=== PATIENT | male | born 1995 | race Caucasian/White ===

== ENCOUNTER 2021-10-30 11:37 | Emergency (ER) | payer MEDICAID ==
[~2021-10-30] VITALS: Ht 172.7 cm; Wt 74.8 kg
[2021-10-30] MEDS ORDERED: LORazepam 2MG/ML-1ML VIAL IV ONE (11:45)
[2021-10-30] MEDS ORDERED: SODIUM CHLORIDE 0.9% 1,000 ML IVB ONE (11:45)
[2021-10-30 12:35] VITALS: BP 116/69
== END 2021-10-30 12:50 | disposition left against medical advice (07) ==
LOC: EDBD 11:37 → ER 11:37
DX: R56.9 Unspecified convulsions (principal)
CPT/HCPCS: 99283; J1953; J7060

== ENCOUNTER 2021-10-31 17:03 | Emergency (ER) | payer MEDICAID ==
[~2021-10-31] VITALS: Ht 182.9 cm; Wt 63.5 kg
[2021-10-31 19:19] VITALS: BP 115/77
== END 2021-10-31 19:26 | disposition home or self-care (01) ==
LOC: ER 17:03
DX: G40.909 Epilepsy, unspecified, not intractable, without status epilepticus (principal); J45.909 Unspecified asthma, uncomplicated; F12.10 Cannabis abuse, uncomplicated

== ENCOUNTER 2022-07-02 07:10 | Emergency (ER) | payer MEDICAID ==
[~2022-07-02] VITALS: Ht 175.3 cm; Wt 55.0 kg
[2022-07-02] MEDS ORDERED: TETRACAINE HCL 0.5% OPTH(EYE) SOLN 4ML EACHEYE ONE (08:30)
[2022-07-02] MEDS ORDERED: FLUORESCEIN SOD OPTH TEST STRIP EACHEYE ONE (08:30)
[2022-07-02 09:21] VITALS: BP 106/56
[2022-07-02] MEDS ORDERED: POLYSOL15 OP (09:31)
== END 2022-07-02 09:43 | disposition home or self-care (01) ==
LOC: ER 07:10
DX: S05.01XA Injury of conjunctiva and corneal abrasion without foreign body, right eye, initial encounter (principal); T15.01XA Foreign body in cornea, right eye, initial encounter; J45.909 Unspecified asthma, uncomplicated; Z79.899 Other long term (current) drug therapy; X58.XXXA Exposure to other specified factors, initial encounter; Y93.89 Activity, other specified; Y92.89 Other specified places as the place of occurrence of the external cause; Y99.8 Other external cause status

== ENCOUNTER 2022-11-03 16:57 | Emergency (ER) | payer MEDICAID ==
[~2022-11-03] VITALS: Ht 175.3 cm; Wt 65.5 kg
[~2022-11-03 16:57] MED LIST: POLYSOL15 OP
[2022-11-03 17:18] VITALS: BP 121/72
== END 2022-11-03 23:00 | disposition left against medical advice (07) ==
LOC: ER 16:59
DX: M79.641 Pain in right hand (principal); Z53.21 Procedure and treatment not carried out due to patient leaving prior to being seen by health care provider; W26.8XXA Contact with other sharp object(s), not elsewhere classified, initial encounter; Y93.89 Activity, other specified; Y92.89 Other specified places as the place of occurrence of the external cause; Y99.8 Other external cause status
CPT/HCPCS: 73130

== ENCOUNTER 2025-05-24 12:24 | Inpatient (IN) | payer MEDICAID ==
[~2025-05-24] VITALS: Ht 167.6 cm; Wt 72.5 kg
[~2025-05-24 12:24] MED LIST changes: -POLYSOL15 OP; +POLYSOL28 OP
--- NOTE | 2025-05-24 13:40 | ED.PDOC ---
GI ASSESSMENT HPI Comments 30-year-old male with PMHX Seizures presents with a chief complaint of abdomen pain with associated nausea, vomiting, and diarrhea. Patient states that his abdomen pain is localized to the right upper quadrant and right flank, nonradiating, describes as aching. Patient states he is unable to keep liquids or solids down without vomiting it back up. Patient states he has not been able to take his seizure medications due to the nausea and vomiting. He also reports he has had several seizures since the symptoms began. Patient is a poor historian and does not know which seizure medication he takes, but states that he believes it is the medication or the heat outside that could be causing his symptoms. He denies any fever, constipation or dysuria. No other symptoms or modifying factors present at this time. Chief Complaint: Nausea/Vomiting Time Seen by MD: 13:29 Primary Care Provider: SAMSON WEBB Reviewed Notes: Medications, Allergies Allergies: Coded Allergies: NO KNOWN ALLERGIES (Unverified , 10/30/21) Home Meds Active Scripts Polymyxin B-Trimethoprim (Trimethoprim Sulfate/Poly) Polymyxn Judy, 1 DROP OP TID for 7 Days, #1 BOTTLE 0 Refills Prov:LISA LOWE 07/02/22 Information Source: Patient Mode of Arrival: Ambulatory Timing: Days Duration: Since onset Prehospital treatment: None Quality: Aching Vomitus: Food Particles Stool: Watery Severity: Moderate Recent: None Recent Hx of: None Pain Location: Diffuse Associated sign and symptoms: Nausea, Vomiting, Diarrhea, Abdominal Pain Past Medical History PAST MEDICAL HISTORY: Asthma, Seizures Surgical History: Denies all surgeries Family History Family History: Reviewed,noncontributory to illness Social History Smoker: Other Alcohol: Occasionally Drugs: Marijuana Lives In: Home Constitutional: reports: fever; denies: chills, diaphoresis, fatigue, malaise, sweats, weakness, others EENTM: denies: blurred vision, double vision, ear bleeding, ear discharge, ear drainage, ear pain, ear ringing, eye pain, eye redness, hearing loss, mouth pain, mouth swelling, nasal discharge, nose bleeding, nose congestion, nose pain, photophobia, tearing, throat pain, throat swelling, voice changes, others Respiratory: denies: cough, hemoptysis, orthopnea, SOB at rest, shortness of breath, SOB with excertion, stridor, wheezing, others Gastrointestinal: reports: abdominal pain, diarrhea, nausea, vomiting; denies: abdomen distended, blood streaked bowels, constipated, dysphagia, difficulty swallowing, hematemesis, melena, poor appetite, poor fluid intake, rectal bleeding, rectal pain, others Genitourinary: denies: burning, dysuria, flank pain, frequency, hematuria, incontinence, penile discharge, penile sore, pain, testicle pain, testicle swelling, urgency, others Neurological: denies: dizziness, fainting, headache, left sided numbness, left sided weakness, numbness, paresthesia, pre-existing deficit, right sided numbness, right sided weakness, seizure, speech problems, tingling, tremors, weakness, others Musculoskeletal: denies: back pain, gout, joint pain, joint swelling, muscle pain, muscle stiffness, neck pain, others Integumetry: denies: bruises, change in color, change in hair/nails, dryness, laceration, lesions, lumps, rash, wounds, others Allergic/Immunocompromised: denies: Difficulty Healing, Frequent Infections, Hives, Itching, others Hematologic/Lymphatic: denies: anemia, blood clots, easy bleeding, easy bruising, swollen glands, others Endocrine: denies: excessive hunger, excessive sweating, excessive thirst, excessive urination, flushing, intolerance to cold, intolerance to heat, u nexplained weight gain, unexplained weight loss, others Psychiatric: denies: anxiety, bipolar disorder, depression, hopeless, panic disorder, schizophrenia, sleepless, suicidal, others All Other Systems: Reviewed and Negative Physical Exam General Appearance: Mild Distress HEENT: Other (Pupils and face symmetric. Moist mucous membranes.) Neck: Full Range of Motion, Normal Inspection Respiratory: Lungs Clear, No Accessory Muscle Use, No Respiratory Distress, Normal Breath Sounds Cardiovascular: No Edema, No JVD, Regular Rate/Rhythm Breast Exam: Deferred Gastrointestinal: RUQ, Soft, Tenderness (Right upper flank and right mid back tenderness) Genitalia: Deferred Pelvic: Deferred Rectal: Deferred Extremities: Normal inspection, Normal range of motion, Non-tender, No pedal edema Neurologic: Alert (Oriented x4), Normal Affect, Normal Mood, Other (Ambulatory) Cerebellar Function: NOT DONE Reflexes: NOT DONE Skin: Dry, Normal Color, Warm Lymphatic: NOT DONE Was a procedure done? Was a procedure done?: No GI differential Dx Differential Diagnosis: Cholangitis, Cholecystitis, Diverticular disease, Gastroenteritis, Hepatitis, Inflammatory BD, Urinary Obstruction, UTI, Urolithia sis, Dehydration, Electrolyte Imbalance, Food Poisoning, Bacterial, Viral, Impaction, Stress Ulcer, Kidney Stone X-Ray, Labs, Meds, VS Vital Signs Date Time Temp Pulse Resp B/P (MAP) Pulse Ox O2 Delivery O2 Flow Rate FiO2 05/24/25 17:04 92 17 119/77 05/24/25 16:47 98.8 92 20 119/77 (91) 99 98.8 05/24/25 16:47 92 20 98 Room Air 05/24/25 15:30 98.0 90 20 119/77 (91) 98 98.0 05/24/25 13:00 98.9 86 16 136/79 (98) 97 98.9 Lab Test 05/24/25 14:22 05/24/25 13:33 Range/Units White Blood Count 5.1 4.4-10.8 10^3/uL Red Blood Count 5.44 4.5-5.90 10^6/uL Hemoglobin 17.4 13.5-17.5 g/dL Hematocrit 50.0 41.0-53.0 % Mean Corpuscular Volume 91.9 80.0-100.0 fL Mean Corpuscular Hemoglobin 32.0 28.0-32.0 pg Mean Corpuscular Hemoglobin Concent 34.8 32.0-36.0 g/dL Red Cell Distribution Width 13.6 11.8-14.3 % Platelet Count 99 L 140-450 10^3/uL Mean Platelet Volume 9.1 6.9-10.8 fL Neutrophils (%) (Auto) 64.0 37.0-80.0 % Lymphocytes (%) (Auto) 24.9 10.0-50.0 % Monocytes (%) (Auto) 10.3 0.0-12.0 % Eosinophils (%) (Auto) 0.0 0.0-7.0 % Basophils (%) (Auto) 0.8 0.0-2.0 % Neutrophils # (Auto) 3.3 1.6-8.6 10 ^3/uL Lymphocytes # (Auto) 1.3 0.4-5.4 10 ^3/uL Monocytes # (Auto) 0.5 0-1.3 10 ^3/uL Eosinophils # (Auto) 0 0-0.8 10 ^3/uL Basophils # (Auto) 0 0-0.2 10 ^3/uL Nucleated Red Blood Cells 0.0 % Sodium Level 133 L 136-145 mmol/L Potassium Level 3.8 3.5-5.1 mmol/L Chloride Level 98 98-107 mmol/L Carbon Dioxide Level 27 20-31 mmol/L Anion Gap 8 5-15 Blood Urea Nitrogen 14 9-23 mg/dL Creatinine 1.28 0.700-1.30 mg/dL Glomerular Filtration Rate Calc 77 >90 mL/min BUN/Creatinine Ratio 10.9 10.0-20.0 Serum Glucose 138 H 74-106 mg/dL Calcium Level 9.6 8.7-10.4 mg/dL Total Bilirubin 0.6 0.2-1.0 mg/dL Aspartate Amino Transferase (AST) 146 H 13-40 U/L Alanine Aminotransferase (ALT) 161 H 7-40 U/L Alkaline Phosphatase 77 46-116 U/L Total Protein 6.9 5.7-8.2 g/dL Albumin 4.4 3.2-4.8 g/dL Valproic Acid Level 76.6 50-100 ug/mL Urine Color Yellow Yellow Urine Clarity Clear Clear Urine pH 6.5 5.0-9.0 Urine Specific [place] 1.035 1.001-1.035 Urine Protein 2+ H Negative Urine Ketones 2+ H Negative Urine Blood Trace H Negative /uL Urine Nitrite Negative Negative Urine Bilirubin Negative Negative Urine Urobilinogen 6 Negative mg/dL Urine Leukocyte Esterase Negative Negative /uL Urine RBC 3 0 - 3 /hpf Urine Microscopic WBC 13 H 0-3 /HPF Urine Squamous Epithelial Cells Few <5 /hpf Urine Bacteria None seen None Seen /hpf Urine Mucus Few None Seen Urine Glucose Normal Normal mg/dL Current Medications Medications (Trade) Dose Ordered Sig/Chelo Route Start Time Stop Time Status Last Admin Morphine Sulfate 4 mg ONCE ONCE IV 05/24/25 13:45 05/24/25 13:46 DC 05/24/25 17:04 Ondansetron HCl (Zofran) 4 mg ONCE ONCE IV 05/24/25 13:45 05/24/25 13:46 DC 05/24/25 17:04 Sodium Chloride 2,000 ml @ 1,000 mls/hr Q2H ONCE IV 05/24/25 13:45 05/24/25 15:44 DC 05/24/25 17:05 Divalproex Sodium (Depakote "Dr" Tablet) 750 mg ONCE ONCE PO 05/24/25 16:15 05/24/25 16:16 DC 05/24/25 17:03 Ceftriaxone Sodium 50 ml @ 100 mls/hr ONCE ONCE IV 05/24/25 16:15 05/24/25 16:44 DC 05/24/25 17:04 PROCEDURE(s): ABPL - CT AB PEL WO CON-NO ORAL OR IV REASON: R flank pain, n/v/d fever ORDER NUMBER(s): [id number], ACCESSION NUMBER(s): [id number] CT CT AB PEL WO CON-NO ORAL OR IV INDICATION: R flank pain, n/v/d fever EXAM DATE: 05/24/2025 01:41 PM COMPARISON: None RADIATION DOSE: CTDIvol: 5 mGy, DLP: 290 mGy*cm PROCEDURE: Helical CT images were obtained of the abdomen and pelvis without IV contrast Sagittal and coronal reconstructions are provided. ORAL CONTRAST: None. ADDITIONAL IMAGES / REFORMATS: None All CT scans at this medical facility are performed using dose modulation techniques as appropriate to a performed exam including the following: Automated exposure control was utilized; adjustment of the MA and/or KV according to patient size; and use of iterative reconstruction technique. FINDINGS: LUNG BASE: Normal. LIVER: Normal. GALLBLADDER AND BILIARY TREE: No calcified gallstones. Normal caliber wall. No intra- or extrahepatic biliary ductal dilation. PANCREAS: Normal. SPLEEN: Normal. BOWEL: Normal. Normal appendix. ADRENALS: Normal. KIDNEYS AND URETER: 4 mm nonobstructive right kidney stone. No hydronephrosis. BLADDER: Normal. REPRODUCTIVE ORGANS: Normal. LYMPH NODES:No lymphadenopathy. PERITONEUM: No ascites or free air. No other fluid collection. VESSELS: Normal RETROPERITONEUM: Normal. ABDOMINAL WALL: Normal. BONES: Normal. IMPRESSION: No acute intraabdominal abnormality. Normal appendix. 4 mm nonobstructive right kidney stone. No hydronephrosis. X-Ray, Labs, Meds, VS Comment 30-year-old male with a history of asthma and seizures brought in by family complaining of right upper quadrant, right flank and right-sided back pain, nausea, vomiting and diarrhea, associated with multiple seizures due to the kelvin bility to tolerate his seizure medications. Vitals unremarkable Exam remarkable for right upper quadrant, right upper flank and right sided back tenderness to palpation Rhythm strip independently interpreted by me: Sinus rhythm, rate 85, no ectopy. CT abdomen and pelvis: IMPRESSION: No acute intraabdominal abnormality. Normal appendix. 4 mm nonobstructive right kidney stone. No hydronephrosis. CBC unremarkable, CMP remarkable for sodium 133, AST 146, ALT 161, UA abnormal showing blood, RBCs and WBCs, possibly indicating early UTI, valproic acid level within normal limits Patient treated with the following in the ED: 2 L 0.9 normal saline IV bolus, morphine 4 mg IV, Zofran 4 mg IV, Rocephin 1 g IV, divalproex 750 mg p.o. On re-evaluation, patient states pain has improved. Vitals were stable. Plan is to admit the patient for pain and emesis control, IV antibiotics for possible UTI, and neuro evaluation of breakthrough seizures. Time of 1ST Reevaluation: 13:59 Reevaluation 1ST: Unchanged Patient Education/Counseling: Diagnosis, Treatment Family Education/Counseling: No Family Present SEPSIS Sepsis Screen Physician Orders Ct Ab Pel Wo Con-No Oral Or Iv (05/24/25 13:38) Vital Signs Date Time Temp Pulse Resp B/P (MAP) Pulse Ox O2 Delivery O2 Flow Rate FiO2 05/24/25 17:04 92 17 119/77 05/24/25 16:47 98.8 92 20 119/77 (91) 99 98.8 05/24/25 16:47 92 20 98 Room Air 05/24/25 15:30 98.0 90 20 119/77 (91) 98 98.0 05/24/25 13:00 98.9 86 16 136/79 (98) 97 98.9 Laboratory Tests Test 05/24/25 14:22 White Blood Count 5.1 10^3/uL (4.4-10.8) Medications Medications Dose Ordered Sig/Chelo Route Start Time Stop Time Status Last Admin Dose Admin Ceftriaxone Sodium 50 ml @ 100 mls/hr ONCE ONCE IV 05/24/25 16:15 05/24/25 16:44 DC 05/24/25 17:04 Divalproex Sodium 750 mg ONCE ONCE PO 05/24/25 16:15 05/24/25 16:16 DC 05/24/25 17:03 Morphine Sulfate 4 mg ONCE ONCE IV 05/24/25 13:45 05/24/25 13:46 DC 05/24/25 17:04 Ondansetron HCl 4 mg ONCE ONCE IV 05/24/25 13:45 05/24/25 13:46 DC 05/24/25 17:04 Sodium Chloride 2,000 ml @ 1,000 mls/hr Q2H ONCE IV 05/24/25 13:45 05/24/25 15:44 DC 05/24/25 17:05 Departure 1 Departure Time of Disposition: 16:30 Impression: Primary Impression: Renal colic on right side Additional Impressions: UTI (urinary tract infection) Breakthrough seizure Disposition: ADMITTED INPATIENT Admit to: Tele Condition: Guarded Critical Care Note Critical Care Time?: No Stability Stability form required: No Heart Score Heart Score: Heart Score Response (Comments) Value History N/A 0 EKG N/A 0 Age N/A 0 Risk Factors N/A 0 Troponin N/A 0 Total 0 I personally scribed for NICOLAS PASTOR MD ([email or web address]) on 05/24/25 at 13:40. Electronically submitted by Charlie Bowman ([email or web address]). NICOLAS PASTOR MD May 24, 2025 13:40
--- NOTE | 2025-05-24 14:11 | DVH ---
CT CT AB PEL WO CON-NO ORAL OR IV INDICATION: R flank pain, n/v/d fever EXAM DATE: 05/24/2025 01:41 PM COMPARISON: None RADIATION DOSE: CTDIvol: 5 mGy, DLP: 290 mGy*cm PROCEDURE: Helical CT images were obtained of the abdomen and pelvis without IV contrast Sagittal and coronal reconstructions are provided. ORAL CONTRAST: None. ADDITIONAL IMAGES / REFORMATS: None All C T scans at this medical facility are performed using dose modulation techniques as appropriate to a p erformed exam including the following: Automated exposure control was utilized; adjustment of the MA and/or KV according to patient size; and use of iterative reconstruction technique. FINDINGS: LUNG BASE: Normal. LIVER: Normal. GALLBLADDER AND BILIARY TREE: No calcified gallstones. Normal caliber wall. No intra- or extrahepatic biliary ductal dilation. PANCREAS: Normal. SPLEEN: Normal. BOWEL: Normal. Normal appendix. ADRENALS: Normal. KIDNEYS AND URETER: 4 mm nonobstructive right kidney stone. No hydronephrosis. BLADDER: Normal. REPRODUCTIVE ORGANS: Normal. LYMPH NODES:No lymphadenopathy. PERITONEUM: No ascites or free air. No other fluid collection. VESSELS: Normal RETROPERITONEUM: Normal. ABDOMINAL WALL: Normal. BONES: Normal. IMPRESSION: No acute intraabdominal abnormality. Normal appendix. 4 mm nonobstructive right kidney stone. No hydronephrosis.
[2025-05-24 14:35] LABS: Hematocrit 50.0 % (41.0-53.0); Hemoglobin 17.4 g/dL (13.5-17.5); Mean Corpuscular Hemoglobin 32.0 pg (28.0-32.0); Mean Corpuscular Volume 91.9 fL (80.0-100.0); Nucleated Red Blood Cells % 0.0 %
[2025-05-24 14:54] LABS: Alanine Aminotransferase 161 U/L (7-40); Albumin 4.4 g/dL (3.2-4.8); Alkaline Phosphatase 77 U/L (46-116); Anion Gap 8 (5-15); BUN/Creatinine Ratio 10.9 (10.0-20.0); Bilirubin, Total 0.6 mg/dL (0.2-1.0); Blood Urea Nitrogen 14 mg/dL (9-23); Calcium 9.6 mg/dL (8.7-10.4); Carbon Dioxide 27 mmol/L (20-31); Chloride 98 mmol/L (98-107); Glucose 138 mg/dL (74-106); Potassium 3.8 mmol/L (3.5-5.1); Sodium 133 mmol/L (136-145); Total Protein 6.9 g/dL (5.7-8.2)
[2025-05-24 15:31] LABS: Urine Protein, UAD 2+ (Negative)
[2025-05-24] MEDS: MORPHINE SULFATE 4 MG/ML SYR/VIAL IV ONE ×2 (17:04→21:43)
[2025-05-24] MEDS: ONDANSETRON HCL 4 MG/2 ML VIAL IV ONE ×2 (17:04→21:43)
[2025-05-24] MEDS: cefTRIAXone 1GM/50ML D5W 50 ML IV ONE (17:04)
[2025-05-24] MEDS: SODIUM CHLORIDE 0.9% 2,000 ML IV ONE (17:05)
[2025-05-24 19:40] VITALS: O2SAT 97
[2025-05-24] MEDS ORDERED: MORPHINE SULFATE INJ 2 MG/ml SYRG IV PRN (22:45)
[2025-05-24] MEDS ORDERED: NITROGLYCERIN 0.4 MG SL TAB SL PRN (22:45)
--- NOTE | 2025-05-24 22:47 | DVHHP2 ---
History of Present Illness History of Present Illness This is a 30-year-old male with past medical history of Seizure disorder on divalproex and lacosamide came to ED with the complaint of abdominal pain, nausea, vomiting and diarrhea. Abdominal pain for 4 days who is in worsen day by day associated with low-back pain especially on right flank pain. Patient having vomiting episodes several times started same duration which contain food materials denies any blood mixed with vomitus. Patient unable to take his seizure medication for last couple of days due to nausea and vomiting, couple of seizures episode at home. As per patient, every time he he went for defecation, passes loose stool but no blood mixed with stool, feeling weak unable to get out from bed and loss of appetite. on bedside noticed even though patient having GI symptoms, trying to continue his seizure medication. Denies any recent sick contact, eat outside foods. Denies any chest pain, SOB, headache, dysuria or any focal weakness. PAST MEDICAL HISTORY: Asthma, Seizures Surgical History: Denies all surgeries Family History: Reviewed,noncontributory to illness Social History Smoker: Other Alcohol: Occasionally Drugs: Denies Lives In: Home Allergy: No known allergy PCP: Dr. Sukumar Dukes Review of Systems Constitutional: Yes: Weakness, Malaise; No: Fever, Chills, Sweats, Other Eyes: No: Pain, Vision change, Conjunctivae inflammation, Eyelid inflammation, Other, Redness ENT: No: Ear pain, Ear discharge, Nose pain, Nose discharge, Nose congestion, Mouth pain, Mouth swelling, Throat pain, Throat swelling, Other Respiratory: No: Cough, Dry, Shortness of breath, SOB with excertion, Wheezing, Hemoptysis, Pleuritic Pain, Sputum, Wheezing, Other Cardiovascular: No: Chest Pain, Palpitations, Orthopnea, Paroxysmal Noc. Dyspnea, Edema, Lt Headedness, Other Gastrointestinal: Nausea, Vomiting, Abdominal Pain; No: Diarrhea, Constipation, Melena, Hematochezia, Other Genitourinary: No Dysuria, No Frequency, No Incontinence, No Hematuria, No Retention, No Other Musculoskeletal: back pain; No: other, neck pain, shoulder pain, arm pain, hand pain, leg pain, foot pain Skin: No: Rash, Lesions, Jaundice, Bruising, Other Neurological: No: Weakness, Numbness, Incoordination, Change in speech, Confusion, Seizures, Other Allergies: Coded Allergies: NO KNOWN ALLERGIES (Unverified , 10/30/21) Exam Vital Signs Vital Signs Date Time Temp Pulse Resp B/P (MAP) Pulse Ox O2 Delivery O2 Flow Rate FiO2 05/24/25 22:13 80 19 115/78 05/24/25 22:00 99.6 97 99.6 05/24/25 19:40 Room Air* 0 21 General Appearance: Alert, Oriented X3, Cooperative, mild distress HEENT: Atraumatic, PERRLA, EOMI Respiratory: Clear to auscultation, Normal air movement Cardiovascular: Regular rate, Normal S1, Normal S2, No murmurs Abdominal: Soft, No tenderness, Other (HYPERACTIVE BOWEL SOUND, RT COSOVERTEBRAL ANGLE TENDERNESS) Extremities: No clubbing, No cyanosis, No edema Skin: No rashes, No breakdown, No significant lesion Neuro: Normal gait, Normal speech, Strength at 5/5 X4 ext, Sensation intact Labs/Xrays Labs Test 05/24/25 14:22 05/24/25 13:33 Range/Units White Blood Count 5.1 4.4-10.8 10^3/uL Red Blood Count 5.44 4.5-5.90 10^6/uL Hemoglobin 17.4 13.5-17.5 g/dL Hematocrit 50.0 41.0-53.0 % Mean Corpuscular Volume 91.9 80.0-100.0 fL Mean Corpuscular Hemoglobin 32.0 28.0-32.0 pg Mean Corpuscular Hemoglobin Concent 34.8 32.0-36.0 g/dL Red Cell Distribution Width 13.6 11.8-14.3 % Platelet Count 99 L 140-450 10^3/uL Mean Platelet Volume 9.1 6.9-10.8 fL Neutrophils (%) (Auto) 64.0 37.0-80.0 % Lymphocytes (%) (Auto) 24.9 10.0-50.0 % Monocytes (%) (Auto) 10.3 0.0-12.0 % Eosinophils (%) (Auto) 0.0 0.0-7.0 % Basophils (%) (Auto) 0.8 0.0-2.0 % Neutrophils # (Auto) 3.3 1.6-8.6 10 ^3/uL Lymphocytes # (Auto) 1.3 0.4-5.4 10 ^3/uL Monocytes # (Auto) 0.5 0-1.3 10 ^3/uL Eosinophils # (Auto) 0 0-0.8 10 ^3/uL Basophils # (Auto) 0 0-0.2 10 ^3/uL Nucleated Red Blood Cells 0.0 % Sodium Level 133 L 136-145 mmol/L Potassium Level 3.8 3.5-5.1 mmol/L Chloride Level 98 98-107 mmol/L Carbon Dioxide Level 27 20-31 mmol/L Anion Gap 8 5-15 Blood Urea Nitrogen 14 9-23 mg/dL Creatinine 1.28 0.700-1.30 mg/dL Glomerular Filtration Rate Calc 77 >90 mL/min BUN/Creatinine Ratio 10.9 10.0-20.0 Serum Glucose 138 H 74-106 mg/dL Calcium Level 9.6 8.7-10.4 mg/dL Total Bilirubin 0.6 0.2-1.0 mg/dL Aspartate Amino Transferase (AST) 146 H 13-40 U/L Alanine Aminotransferase (ALT) 161 H 7-40 U/L Alkaline Phosphatase 77 46-116 U/L Total Protein 6.9 5.7-8.2 g/dL Albumin 4.4 3.2-4.8 g/dL Valproic Acid Level 76.6 50-100 ug/mL Urine Color Yellow Yellow Urine Clarity Clear Clear Urine pH 6.5 5.0-9.0 Urine Specific [place] 1.035 1.001-1.035 Urine Protein 2+ H Negative Urine Ketones 2+ H Negative Urine Blood Trace H Negative /uL Urine Nitrite Negative Negative Urine Bilirubin Negative Negative Urine Urobilinogen 6 Negative mg/dL Urine Leukocyte Esterase Negative Negative /uL Urine RBC 3 0 - 3 /hpf Urine Microscopic WBC 13 H 0-3 /HPF Urine Squamous Epithelial Cells Few <5 /hpf Urine Bacteria None seen None Seen /hpf Urine Mucus Few None Seen Urine Glucose Normal Normal mg/dL SEPSIS Sepsis Screen Date sepsis recognized/suspect: May 24, 2025 Time Sepsis recognized/suspect: 1647 Recent Procedure: No On Antibiotic Therapy: No Respiratory Rate >20: No Heart Rate >90: No Temp<36 C (96.8 F) or >38.3 C: No SBP <90 or MAP <65 mmHG: No New Acute Mental Status Change: No Is the patient on CPAP, BIPAP,: No Physician Orders Hose Cementer (05/24/25 ) Admit (05/24/25 22:45) Nitroglycerin Sublingual (Ntrostat Subli (05/24/25 22:45) Morphine Sulfate Injection (05/24/25 22:45) Vital Signs Date Time Temp Pulse Resp B/P (MAP) Pulse Ox O2 Delivery O2 Flow Rate FiO2 05/24/25 22:13 80 19 115/78 05/24/25 22:00 99.6 79 18 105/75 (85) 97 99.6 05/24/25 21:43 78 19 103/66 05/24/25 20:00 89 05/24/25 19:40 97 Room Air* 0 21 05/24/25 19:40 99.6 84 19 129/78 (95) 99 99.6 05/24/25 17:04 92 17 119/77 05/24/25 16:47 98.8 92 20 119/77 (91) 99 98.8 05/24/25 16:47 92 20 98 Room Air 05/24/25 15:30 98.0 90 20 119/77 (91) 98 98.0 Laboratory Tests Test 05/24/25 14:22 White Blood Count 5.1 10^3/uL (4.4-10.8) Medications Medications Dose Ordered Sig/Chelo Route Start Time Stop Time Status Last Admin Dose Admin Ceftriaxone Sodium 50 ml @ 100 mls/hr ONCE ONCE IV 05/24/25 16:15 05/24/25 16:44 DC 05/24/25 17:04 100 MLS/HR Divalproex Sodium 750 mg ONCE ONCE PO 05/24/25 16:15 05/24/25 16:16 DC 05/24/25 17:03 750 MG Morphine Sulfate 4 mg ONCE ONCE IV 05/24/25 13:45 05/24/25 13:46 DC 05/24/25 17:04 4 MG Morphine Sulfate 4 mg ONCE ONCE IV 05/24/25 21:45 05/24/25 21:46 DC 05/24/25 21:43 4 MG Ondansetron HCl 4 mg ONCE ONCE IV 05/24/25 13:45 05/24/25 13:46 DC 05/24/25 17:04 4 MG Ondansetron HCl 4 mg ONCE ONCE IV 05/24/25 21:45 05/24/25 21:46 DC 05/24/25 21:43 4 MG Sodium Chloride 2,000 ml @ 1,000 mls/hr Q2H ONCE IV 05/24/25 13:45 05/24/25 15:44 DC 05/24/25 17:05 1,000 MLS/HR Assessment/Plan Assessment/Plan # SEIZURE DISORDERS -Patient had couple of seizure episode at home -Unable to take seizure medication due to GI upset -In ER, received Divalproex 750 mg stat, ceftriaxone, NSS, ondansetron, morphine. -NSS 125 cc/hour -Lacosamide 200 mg p.o. b.i.d. -Divalproex 500 mg ER p.o. b.i.d. -Valproic acid level- 76.6 -Lorazepam 2 mg IV Q 5 minutes p.r.n. if seizure episode -Neuro check q.6 H -filter bed placer -Neurologic consult # INTRACTABLE ABDOMINAL LIKELY DUE TO NEPHROLITHIASIS -Patient came with upper abdominal and lower back pain -CT abdomen pelvis without contrast: No acute intraabdominal abnormality. Normal appendix. 4 mm no obstructive right kidney stone. No hydronephrosis. -NSS 125 cc/hour -Tamsulosin 0.4 mg p.o. daily -Ondansetron 4 mg q.6 H -Famotidine 20 mg p.o. b.i.d. -Morphine 1 mg q.6 p.r.n. for pain -Urology follow-up outpatient 4 weeks after discharge if calculus not passes spontaneously. # TRANSAMINITIS DUE TO VALPROIC ACID -AST 146, ALT 161, total bilirubin 0.6, ALP 77 -Ultrasound abdomen rule out hepatic lesion -Acute hepatitis panel we will follow -CMP, HbA1c, lipid profile, TSH, B12, folic acid level # THROMBOCYTOPENIA LIKELY VALPROIC ACID -Platelet count 99 -No active signs symptoms of bleeding -Monitor CBC # ROLLY DUE TO VASOMOTOR NEPHROPATHY -NSS 125 cc/hour -Creatinine 1.28, unknown baseline, EGFR 77 -Avoid nephrotoxic drugs -UA-blood trace, WBC 13, nitrates and leukocyte esterase-negative. # HYPONATREMIA -H/o vomiting ,loose stool. -Serum sodium 133 -NSS 125 cc/HR DIET: Clear liquid diet GI prophylaxis: Famotidine 20 mg p.o. b.i.d. DVT prophylaxis: Lovenox 30 mg sc daily Goals of care discussions, more than 29 minute spent. Full code status. Case discussed with Dr. Woodall Plan discussed with: Patient, Other (NURSE) My Orders Orders - ABE GENAO Procedure Category Date Status Time Admit ADMIT 05/24/25 Verified 22:45 Nitroglycerin PHA 05/24/25 Verified Sublingual (Ntrostat 22:45 Morphine Sulfate PHA 05/24/25 Verified Injection 22:45 Date of Service: May 24, 2025 Billing Provider: NAHID WOODALL MD Common Visit Codes: 62275-[id number] INP/OBS CARE (HIGH) Secondary Visit Codes: 29389-[id number] CARE PLAN 30 MINUTES ABE GENAO May 24, 2025 22:47
[2025-05-25] VITALS (9 sets, daily range): BP systolic 95–107; BP diastolic 60–74; PULSE 70–90; RESP 14–18; TEMP 97.2–100.7; O2SAT 93–100
[2025-05-25] MEDS ORDERED: LORazepam 2MG/ML-1ML VIAL IV PRN
[2025-05-25] MEDS ORDERED: MORPHINE SULFATE INJ 2 MG/ml SYRG IV PRN
[2025-05-25] MEDS: SODIUM CHLORIDE 0.9% 1,000 ML IV SCH (00:24)
[2025-05-25] MEDS: TAMSULOSIN HYDROCHLORIDE 0.4 MG CAP PO ONE (00:27)
[2025-05-25] MEDS: FAMOTIDINE (10MG/ML) 2ML VL IV ONE (00:28)
[2025-05-25] MEDS ORDERED: ACETAMINOPHEN 325 MG TAB PO PRN (04:15)
[2025-05-25] MEDS: ACETAMINOPHEN 325 MG TAB PO PRN (04:37)
--- NOTE | 2025-05-25 05:01 | DVH ---
INDICATION: Abnormal LFTs TECHNIQUE: Multiple real-time sonographic images were obtained of the right upper quadrant. COMPARISON: None FINDINGS: The liver demonstrates normal homogeneous echotexture without focal mass lesions. The liver measures 17.0 cm. Normal hepatopetal portal flow identified. No evidence of pleural effusion or abd ominal ascites. There is no intrahepatic or extrahepatic ductal dilatation. The common duct measures 0.3 cm. The gallbladder is without evidence of stone or sludge. The gallbladder wall measures 0.3 cm and is w ithin normal limits. Negative sonographic linares's sign. The right kidney measures 10.4 cm. The right kidney is normal in contour, size, and shape. The echoge nicity is normal. There is no hydronephrosis. The pancreas is normal. IMPRESSION: 1. Unremarkable right upper quadrant sonogram.
[2025-05-25 07:42] LABS: Cholesterol 113 mg/dL (< 200)
[2025-05-25 07:50] LABS: Triglycerides 181 mg/dL (< 150)
[2025-05-25 07:51] LABS: HDL Cholesterol 13 mg/dL (40-59)
[2025-05-25] MEDS: FAMOTIDINE 20 MG TAB PO SCH (09:25)
[2025-05-25] MEDS: LACOSAMIDE 50 MG TAB PO SCH (09:25)
[2025-05-25] MEDS: ENOXAPARIN SOD 30 MG/0.3 ML SYRINGE SC SCH (09:26)
[2025-05-25] MEDS ORDERED: DIVA500T13 PO (09:44)
[2025-05-25] MEDS ORDERED: LACO200T3 PO (09:44)
[2025-05-25 10:01] LABS: Hepatitis B Surface Antigen Negative (Negative)
[2025-05-25 10:30] LABS: Hepatitis C Antibody Negative (Negative)
--- NOTE | 2025-05-25 11:32 | DVH ---
EXAM: XY CHEST XRAY 1 VIEW Indication: seizure Technique: Single frontal view of the chest was obtained Comparison: None FINDINGS: Lines and Tubes: None Lungs: No focal consolidation. Pleura: No effusion. No pneumothorax. Cardiomediastinal contours: Unremarkable Bones: No acute osseous abnormality. IMPRESSION: No acute cardiopulmonary disease.
--- NOTE | 2025-05-25 15:35 | DVHPNRES ---
Progress Note Date Seen: May 25, 2025 Resident Creating Document: BETH FLORES RESIDENT Medical Necessity Reason Pt with a Central, PICC or Fol: No Subjective Review of Systems Patient is a 30-year-old male with past medical history of asthma, and epilepsy which was diagnosed in 2019 who is taking divalproex, and locasamide. He came to the ED with chief complaints of abdominal pain associated with fever, nausea, vomiting, and diarrhea since 5 days. Patient has been compliant with seizure medications but has been unable to take them because of Nausea and Vomiting every time he eats anything, had couple of tonic-clonic seizure episodes at home which lasted 1 minute each, and was confused after the seizures stopped, with no associated trauma to the head. He denies any blood in the stool or vomit. Patient denies any recent sick contacts, travel, eating outside foods. Patient complained his fevers are mostly at night. Patient denies any surgical history, family history not contributory. He denies any smoking, alcohol use or drug use. CT shows 4 mm nonobstructive right kidney stone. liver ultrasound was normal. Chest X-ray showed no acute cardiopulmonary disease. Patient seen at bedside. Patient is alert x3 and today complains of left lower back pain, nausea, dizziness when getting up, mild throat associated with cough, and one episode of diarrhea. He also reports feeling weak and unable to get out of bed with a loss of appetite. Patient denies any chest pain, abdominal pain on palpation, shortness of breath, headache, dysuria, vomiting. Patient reports feeling better than yesterday. Neurology was consulted. Objective vital signs Vital Sign Date Time Temp Pulse Resp B/P (MAP) Pulse Ox O2 Delivery O2 Flow Rate FiO2 05/25/25 12:49 97.2 70 16 100/68 (79) 100 97.2 05/25/25 08:00 Room Air* 0 21 Total Intake and Output 05/24/25 05/24/25 05/25/25 15:00 23:00 07:00 Intake Total 2000 ml 825 ml Balance 2000 ml 825 ml medications Current Medications Medications Dose Ordered Sig/Chelo Route Start Time Stop Time Status Last Admin Dose Admin Sodium Chloride 1,000 ml @ 125 mls/hr Q8H IV 05/25/25 00:00 05/25/25 08:00 125 MLS/HR Ondansetron HCl 4 mg Q6HPRN PRN IV 05/25/25 00:00 Divalproex Sodium 500 mg BID PO 05/25/25 10:00 05/25/25 09:24 500 MG Lorazepam 1 mg Q5MINP PRN IV 05/25/25 00:00 Famotidine 20 mg Q12HR PO 05/25/25 10:00 05/25/25 09:25 20 MG Lacosamide 200 mg BID PO 05/25/25 10:00 05/25/25 09:25 200 MG Acetaminophen 650 mg Q6HP PRN PO 05/25/25 04:30 05/25/25 04:37 650 MG Examination General: Patient alert and oriented in person, place and time. Patient following commands. HEENT: Normocephalic, atraumatic, moist mucous membranes Respiratory/pulmonary: Clear lungs bilaterally, vesicular murmurs present in almost all lung osullivan, no associated crackles or wheezes. Cardiovascular: Normal heart sounds S1 and S2 with no associated murmurs Abdomen: Abdomen nondistended, left lower back pain, no palpable masses. Extremities: There is no peripheral edema present at the lower extremities. Peripheral Pulses: 3+ Radial (R). 3+ Radial (L). 3+ Dorsalis pedis (R). 3+ Dorsalis pedis(L) Skin: No rashes or pruritus, there is no sacral edema present at this time. Neurological: Intact cranial nerves with no focal neurologic deficits laboratory and microbiology Laboratory Tests 05/24/25 14:22 Test 05/24/25 14:22 Range/Units Serum Glucose 138 H 74-106 mg/dL Problem List/Assessment/Plan Problem List/Assessment/Plan # Breakthrough Tonic Clonic seizure with H/o epilepsy -Patient had couple of seizure episode at home since 4 days -Unable to take seizure medication due to Nausea and vomiting -Lacosamide 200 mg p.o. b.i.d. and Divalproex 500 mg ER p.o. b.i.d. given -Neurologic consult placed # Intractable nausea and vomiting likely due to viral gastroenteritis - CT abdomen pelvis without contrast showed No acute intraabdominal abnormality. Normal appendix. 4 mm nonobstructive right kidney stone. No hydronephrosis. - IV fluids given - Ondansetron 4 mg q.6 H - stool culture pending - Stool occult blood, and WBC negative # 4mm non obstuctive right kidney stone -Urology follow-up outpatient 4 weeks after discharge if calculus not passes spontaneously. - IV fluids # Transaminitis secondary to medication induced - AST 146, ALT 161, - Liver US is normal - Hepatitis panel negative - Valproic acid level- 76.6 # Thrombocytopenia possibly medication induced -Platelet count 99 -No active signs symptoms of bleeding -Monitor CBC -Valproic acid level- 76.6 # ROLLY due to VMN -NSS 125 cc/hour -Creatinine 1.28, unknown baseline, EGFR 77 -Avoid nephrotoxic drugs -UA-blood trace, WBC 13, nitrates and leukocyte esterase-negative. # Hyponatreima -H/o vomiting ,loose stool. -Serum sodium 133 # Mild Hypertriglyceridemia - [employer] Instructor on diet and lifestyle changes DIET: Clear liquid diet GI prophylaxis: Famotidine 20 mg p.o. b.i.d. DVT prophylaxis: Ambulatory Goals of care discussed with the patient for 27 minutes: full code Case discussed with Dr. Briscoe Plan discussed with: Patient My Orders My Orders Orders - BETH FLORES Procedure Category Date Status Time Stool Bacterial DANNI 05/25/25 In Process Culture 11:50 Date of Service: May 25, 2025 Billing Provider: MARILYN BRISCOE MD Common Visit Codes: [id number] INP/OBS CARE(HIGH) BETH FLORES May 25, 2025 15:35 MARILYN BRISCOE MD May 25, 2025 22:15
[2025-05-25] MEDS ORDERED: TAMSULOSIN HYDROCHLORIDE 0.4 MG CAP PO SCH (18:00)
[2025-05-25 21:28] LABS: COVID19 ANTIGEN SOFIA FIA NEGATIVE (NEGATIVE)
--- NOTE | 2025-05-25 22:00 | DVHINCON2 ---
Date of service: May 25, [address] Buckley Reason for Consultation Seizure disorder History of Present Illness Mr. Johnson is a 30 years old gentleman, with a history of asthma, seizure disorder, he came to the [facility] on 05/24/2025 with a chief company of nausea, vomiting, abdominal pain. At this time, he is alert and fully oriented, he and his provided the following history I saw him before in my office Since childhood, he has episodic event which starts with reason and moving in the right arm, spiking, heavy breathing, this happens about once monthly (was very frequent previously), sometimes this is followed by generalized tonic-cl onic activity, and he has had tongue biting, incontinence during the event, the last event was about one year ago He sees a [place] neurologist, currently he is on Lacosamide, 200 mg in the morning, 300 mg at bedtime, Depakote 500 mg twice daily He is still have continuous video EEG in the [facility] Hepatitis panel, 05/25/2025: Negative Valproic acid, 05/24/2025: 76.6 Urinalysis, 05/13/2025: WBC: 13, urine leukocyte esterase: Negative CBC, 05/24/2025: Unremarkable HGB A1c, 05/25/2025: 5.3 TBI/AST/ALT/80, 05/24/2025: 0.9/146/161/77 TG/HDL/LDL/HDL, 05/15/2025: 181/113/81/13 Vitamin B12, 05/25/25: 863 Folic acid, 05/25/2025: 4.4 TSH, 05/25/2025: 3:95 Past Medical History Asthma, seizure, kidney stone. Past Surgical History No major surgeries Family History: Diabetes mellitus G8 FATHER FH: heart failure G8 MOTHER FH: kidney failure G8 MOTHER Hypertension G8 FATHER Liver failure G8 MOTHER Family History Hypertension, hypotension, diabetes, congestive heart failure, kidney failure, kidney stone, liver failure Social History He was tobacco smoke, but no history of drug or alcohol abuse Allergies: Coded Allergies: NO KNOWN ALLERGIES (Unverified , 10/30/21) Home Meds Reported Medications Lacosamide (Lacosamide) 200 Mg Tab, PO 05/25/25 Divalproex Sodium (Divalproex Sodium) 500 Mg Tab, TAB PO 05/25/25 Current Medications Current Medications Medications (Trade) Dose Ordered Sig/Chelo Route PRN Reason Start Time Stop Time Status Last Admin Nitroglycerin (Ntrostat Sublingual) 0.4 mg Q5MINP PRN SL FOR CHEST PAIN 05/24/25 22:45 05/25/25 07:23 DC Morphine Sulfate 2 mg Q30M PRN IV FOR CHEST PAIN 05/24/25 22:45 05/25/25 07:23 DC Sodium Chloride 1,000 ml @ 125 mls/hr Q8H IV 05/25/25 00:00 05/25/25 08:00 Ondansetron HCl (Zofran) 4 mg Q6HPRN PRN IV NAUSEA / VOMITING 05/25/25 00:00 Morphine Sulfate 1 mg Q6HP PRN IV MODERATE PAIN (4-6 PAIN SCALE) 05/25/25 00:00 05/25/25 10:03 DC Divalproex Sodium (Depakote "Dr" Tablet) 500 mg BID PO 05/25/25 10:00 05/25/25 21:28 Lorazepam (Ativan Inj) 1 mg Q5MINP PRN IV SEIZURES 05/25/25 00:00 Tamsulosin HCl (Flomax) 0.4 mg QPM PO 05/25/25 18:00 05/25/25 10:03 DC Famotidine (Pepcid Tablet) 20 mg Q12HR PO 05/25/25 10:00 05/25/25 21:28 Enoxaparin Sodium (Lovenox) 30 mg DAILY SC 05/25/25 10:00 05/25/25 10:03 DC Lacosamide (Vimpat) 200 mg BID PO 05/25/25 10:00 05/25/25 21:27 Acetaminophen (Tylenol Tablet) 650 mg Q4HP PRN PO PAIN SCALE 1-3 OR TEMP>100.4 05/25/25 04:15 05/25/25 04:21 DC Acetaminophen (Tylenol Tablet) 650 mg Q6HP PRN PO PAIN SCALE 1-3 OR TEMP>100.4 05/25/25 04:30 05/25/25 04:37 Review of Systems As above, the other systems are negative Vital Signs Vital Signs Date Time Temp Pulse Resp B/P (MAP) Pulse Ox O2 Delivery O2 Flow Rate FiO2 05/25/25 20:00 18 Room Air* 0 21 05/25/25 16:46 98.4 77 96/63 (74) 100 98.4 Physical Exam GENERAL EXAM: General: the patient is well developed and nourished. No acute distress. HEENT: Normocephalic, neck is supple, no carotid bruits. No mass. RESPIRATORY: Normal respiratory effort with symmetrical lung expansion. Lungs clear to auscultation. CARDIOVASCULAR: Regular rate and rhythm with no murmurs. S1, S2. ABDOMEN: Soft, nontender, normal bowel sound NEUROLOGICAL: MENTAL STATUS: Awake and alert. Oriented to person, place, time and general circumstances. Able to give personal history. SPEECH, LANGUAGE, HIGHER CORTICAL FUNCTION: no aphasia or dysathria. CRANIAL NERVES: #2: Intact visual osullivan to confrontation. The optic discs were sharp. #3,4,6: Pupils are equal, round and reactive. EOMs full and conjugate. #5: Facial sensation intact in all three divisions bilaterally. Mandibular strength intact. #7: Facial muscles symmetrical and strength intact. #8: Hearing grossly normal to voice. #9,10: Uvula and soft palate rise in the midline. Swallow and voice are normal. #11: Trapezius and sternomastoid strength intact bilaterally. #12: Tongue midline. No fasciculations or atrophy. SENSATION: Sensation to touch and pinprick is normal. MOTOR: Normal tone in the upper and lower extremity. Normal muscle bulk. No fasciculations. No abnormal movements or posturing. Muscle strength of the major groups in the upper extremities is 5/5. Muscle strength of the major groups in the lower extremities is 5/5. REFLEXES: Deep tendon reflexes are symmetrical. No pathological reflexes. CEREBELLAR/COORDINATION: Finger to nose is normal bilaterally. GAIT/STATION: deferred. Labs/Diagnostic Data Labs Test 05/25/25 20:00 05/25/25 10:30 05/25/25 08:46 05/25/25 04:48 Range/Units Influenza Type A Antigen Negative Negative Influenza Type B Antigen Negative Negative SARS-CoV-2 Antigen (Rapid) Negative NEGATIVE Stool Occult Blood Negative Negative Stool Occult Blood Sample #3 Negative Stool for White Cells None seen Lactic Acid Level 1.0 0.4-2.0 mmol/L Creatine Kinase 94 46-171 U/L Hemoglobin A1c 5.3 <5.7 % A1C Triglycerides Level 181 H < 150 mg/dL Cholesterol Level 113 < 200 mg/dL LDL Cholesterol 80 < 100 mg/dL HDL Cholesterol 13 L 40-59 mg/dL Vitamin B12 Level 863 211-911 pg/mL Folic Acid 4.40 >5.38 ng/mL Thyroid Stimulating Hormone (TSH) 3.95 0.55-4.78 uIU/mL Hepatitis A IgM Antibody Negative Hepatitis B Surface Antigen Negative Negative Hepatitis B Core IgM Antibody Negative Negative Hepatitis C Antibody Negative Negative Test 05/24/25 14:22 05/24/25 13:33 Range/Units White Blood Count 5.1 4.4-10.8 10^3/uL Red Blood Count 5.44 4.5-5.90 10^6/uL Hemoglobin 17.4 13.5-17.5 g/dL Hematocrit 50.0 41.0-53.0 % Mean Corpuscular Volume 91.9 80.0-100.0 fL Mean Corpuscular Hemoglobin 32.0 28.0-32.0 pg Mean Corpuscular Hemoglobin Concent 34.8 32.0-36.0 g/dL Red Cell Distribution Width 13.6 11.8-14.3 % Platelet Count 99 L 140-450 10^3/uL Mean Platelet Volume 9.1 6.9-10.8 fL Neutrophils (%) (Auto) 64.0 37.0-80.0 % Lymphocytes (%) (Auto) 24.9 10.0-50.0 % Monocytes (%) (Auto) 10.3 0.0-12.0 % Eosinophils (%) (Auto) 0.0 0.0-7.0 % Basophils (%) (Auto) 0.8 0.0-2.0 % Neutrophils # (Auto) 3.3 1.6-8.6 10 ^3/uL Lymphocytes # (Auto) 1.3 0.4-5.4 10 ^3/uL Monocytes # (Auto) 0.5 0-1.3 10 ^3/uL Eosinophils # (Auto) 0 0-0.8 10 ^3/uL Basophils # (Auto) 0 0-0.2 10 ^3/uL Nucleated Red Blood Cells 0.0 % Sodium Level 133 L 136-145 mmol/L Potassium Level 3.8 3.5-5.1 mmol/L Chloride Level 98 98-107 mmol/L Carbon Dioxide Level 27 20-31 mmol/L Anion Gap 8 5-15 Blood Urea Nitrogen 14 9-23 mg/dL Creatinine 1.28 0.700-1.30 mg/dL Glomerular Filtration Rate Calc 77 >90 mL/min BUN/Creatinine Ratio 10.9 10.0-20.0 Serum Glucose 138 H 74-106 mg/dL Calcium Level 9.6 8.7-10.4 mg/dL Total Bilirubin 0.6 0.2-1.0 mg/dL Aspartate Amino Transferase (AST) 146 H 13-40 U/L Alanine Aminotransferase (ALT) 161 H 7-40 U/L Alkaline Phosphatase 77 46-116 U/L Total Protein 6.9 5.7-8.2 g/dL Albumin 4.4 3.2-4.8 g/dL Valproic Acid Level 76.6 50-100 ug/mL Urine Color Yellow Yellow Urine Clarity Clear Clear Urine pH 6.5 5.0-9.0 Urine Specific [place] 1.035 1.001-1.035 Urine Protein 2+ H Negative Urine Ketones 2+ H Negative Urine Blood Trace H Negative /uL Urine Nitrite Negative Negative Urine Bilirubin Negative Negative Urine Urobilinogen 6 Negative mg/dL Urine Leukocyte Esterase Negative Negative /uL Urine RBC 3 0 - 3 /hpf Urine Microscopic WBC 13 H 0-3 /HPF Urine Squamous Epithelial Cells Few <5 /hpf Urine Bacteria None seen None Seen /hpf Urine Mucus Few None Seen Urine Glucose Normal Normal mg/dL Assessment Seizure Grand mal seizure Partial complex seizure Plan/Recommendation Monitoring Supportive treatment Depakote 500 mg b.i.d. Vimpat 200 mg a.m., 300 mg HS Good compliance to Tx Avoid sleep deprivation No alcohol, drug abuse Follow up with [facility] neurologist on discharge Plan discussed with: Patient, Spouse, Other ALEXANDREA ARROYO MD May 25, 2025 22:00
[2025-05-26] VITALS (8 sets, daily range): BP systolic 93–101; BP diastolic 59–67; PULSE 69–87; RESP 16–18; TEMP 97.5–101.1; O2SAT 95–100
[2025-05-26] MEDS: ONDANSETRON HCL 4 MG/2 ML VIAL IV PRN (01:56)
[2025-05-26] MEDS: LACOSAMIDE 50 MG TAB PO SCH ×2 (06:19→21:22)
[2025-05-26 07:02] LABS: Hematocrit 45.4 % (41.0-53.0); Hemoglobin 15.5 g/dL (13.5-17.5); Mean Corpuscular Hemoglobin 31.8 pg (28.0-32.0); Mean Corpuscular Volume 92.9 fL (80.0-100.0)
[2025-05-26 07:03] LABS: Chloride 107 mmol/L (98-107); Potassium 4.4 mmol/L (3.5-5.1); Sodium 141 mmol/L (136-145)
[2025-05-26 07:04] LABS: Anion Gap 5 (5-15); Carbon Dioxide 29 mmol/L (20-31)
[2025-05-26 07:05] LABS: Calcium 9.1 mg/dL (8.7-10.4)
[2025-05-26 07:09] LABS: Glucose 95 mg/dL (74-106)
[2025-05-26 07:12] LABS: BUN/Creatinine Ratio 5.1 (10.0-20.0); Blood Urea Nitrogen < 5 mg/dL (9-23)
[2025-05-26 08:03] LABS: Smudge Cells 2 /100 WBC; Total Cells Counted 100.0 (100)
--- NOTE | 2025-05-26 10:36 | DVHPN2 ---
Progress Note - Dictate Date Seen: May 26, 2025 Medical Necessity Reason Pt with a Central, PICC or Fol: No Subjective Mr. Johnson is a 30 years old gentleman, with a history of asthma, seizure disorder, he came to the [facility] on 05/24/2025 with a chief company of nausea, vomiting, abdominal pain. I saw him before in my office I have seen and examined the patient, I have talked to his nurse and , he is doing fine, alert and fully oriented, no seizure activity overnight He spiked temperature in the hospital, sepsis was suspected Hepatitis panel, 05/25/2025: Negative Valproic acid, 05/24/2025: 76.6 Urinalysis, 05/13/2025: WBC: 13, urine leukocyte esterase: Negative CBC, 05/24/2025: Unremarkable HGB A1c, 05/25/2025: 5.3 TBI/AST/ALT/80, 05/24/2025: 0.9/146/161/77 TG/HDL/LDL/HDL, 05/15/2025: 181/113/81/13 Vitamin B12, 05/25/25: 863 Folic acid, 05/25/2025: 4.4 TSH, 05/25/2025: 3:95 vital signs Vital Sign Date Time Temp Pulse Resp B/P (MAP) Pulse Ox O2 Delivery O2 Flow Rate FiO2 05/26/25 08:53 98.5 87 17 97/65 (76) 97 98.5 05/25/25 20:00 Room Air* 0 21 Total Intake and Output 05/25/25 05/25/25 05/26/25 15:00 23:00 07:00 Intake Total 800 ml 2263 ml Output Total 500 ml Balance 800 ml 1763 ml medications Current Medications Medications Dose Ordered Sig/Chelo Route Start Time Stop Time Status Last Admin Dose Admin Ondansetron HCl 4 mg Q6HPRN PRN IV 05/25/25 00:00 05/26/25 01:56 4 MG Divalproex Sodium 500 mg BID PO 05/25/25 10:00 05/26/25 09:53 500 MG Lorazepam 1 mg Q5MINP PRN IV 05/25/25 00:00 Famotidine 20 mg Q12HR PO 05/25/25 10:00 05/26/25 09:53 20 MG Acetaminophen 650 mg Q6HP PRN PO 05/25/25 04:30 05/26/25 00:22 650 MG Lacosamide 200 mg QAM PO 05/26/25 07:00 05/26/25 06:19 200 MG Lacosamide 300 mg HS PO 05/26/25 22:00 Levofloxacin/ Dextrose 100 ml @ 100 mls/hr DAILY IV 05/26/25 10:00 Sodium Chloride 1,000 ml @ 125 mls/hr Q8H IV 05/26/25 10:00 objective General: the patient is well developed and nourished. No acute distress. MENTAL STATUS: Subjective SPEECH, LANGUAGE, HIGHER CORTICAL FUNCTION: no aphasia or dysathria. CRANIAL NERVES: Pupils are equal, round and reactive. EOMs full and conjugate. Facial sensation intact in all three divisions bilaterally. Mandibular strength intact. Facial muscles symmetrical and strength intact. SENSATION: Sensation to touch and pinprick is normal. MOTOR: Normal tone in the upper and lower extremity. Normal muscle bulk. No fasciculations. No abnormal movements or posturing. Muscle strength of the major groups in the uextremities is 5/5. REFLEXES: Deep tendon reflexes are symmetrical. No pathological reflexes. CEREBELLAR/COORDINATION: Finger to nose is normal bilaterally. GAIT/STATION: deferred. laboratory and microbiology Laboratory Tests 05/26/25 06:27 Test 05/26/25 06:27 Range/Units Serum Glucose 95 74-106 mg/dL Problem List Seizure Grand mal seizure Partial complex seizure Fever/sepsis Assessment/Plan Monitoring Supportive treatment Blood culture Depakote 500 mg b.i.d. Vimpat 200 mg a.m., 300 mg HS Good compliance to Tx Avoid sleep deprivation No alcohol, drug abuse Follow up with [place] neurologist on discharge Prognosis: Poor This medical document was created using an electronic medical record system with [employer] dictation system. Although this document has been carefully reviewed, there may still be some phonetic and typographical errors. These areas are purely typographical due to imperfections of the software programs, and do not reflect any compromise in the patient's medical care. Prognosis poor Plan discussed with: Patient, Spouse, Other ALEXANDREA ARROYO MD May 26, 2025 10:36
[2025-05-26] MEDS: SODIUM CHLORIDE 0.9% 1,000 ML IV SCH (12:35)
--- NOTE | 2025-05-26 16:46 | DVHPNRES ---
Progress Note Date Seen: May 26, 2025 Resident Creating Document: BETH FLORES RESIDENT Medical Necessity Reason Pt with a Central, PICC or Fol: No Subjective Review of Systems Patient is a 30-year-old male with past medical history of asthma, and epilepsy which was diagnosed in 2019 who is taking divalproex, and locasamide. He came to the ED with chief complaints of abdominal pain associated with fever, nausea, vomiting, and diarrhea since 5 days. Patient has been compliant with seizure medications but has been unable to take them because of Nausea and Vomiting every time he eats anything, had couple of tonic-clonic seizure episodes at home which lasted 1 minute each, and was confused after the seizures stopped, with no associated trauma to the head. He denies any blood in the stool or vomit. Patient denies any recent sick contacts, travel, eating outside foods. Patient complained his fevers are mostly at night. Patient denies any surgical history, family history not contributory. He denies any smoking, alcohol use or drug use. CT shows 4 mm nonobstructive right kidney stone. liver ultrasound was normal. Chest X-ray showed no acute cardiopulmonary disease. Patient seen bedside. He complained of lower back pain, night sweats, and fever episode in the night. He had 1 episode of diarrhea yesterday, and denies any vomiting, nausea, dysuria or blood in the urine. Platelets today are 8.3. Blood culture was sent and patient was started on levofloxacin 500mg IV. Advanced to Regular diet and tolerating well. Neurology on board. Objective vital signs Vital Sign Date Time Temp Pulse Resp B/P (MAP) Pulse Ox O2 Delivery O2 Flow Rate FiO2 05/26/25 13:00 97.5 78 17 97/59 (72) 99 97.5 05/26/25 08:00 Room Air* 0 21 Total Intake and Output 05/25/25 05/25/25 05/26/25 15:00 23:00 07:00 Intake Total 800 ml 2263 ml Output Total 500 ml Balance 800 ml 1763 ml medications Current Medications Medications Dose Ordered Sig/Chelo Route Start Time Stop Time Status Last Admin Dose Admin Ondansetron HCl 4 mg Q6HPRN PRN IV 05/25/25 00:00 05/26/25 01:56 4 MG Divalproex Sodium 500 mg BID PO 05/25/25 10:00 05/26/25 09:53 500 MG Lorazepam 1 mg Q5MINP PRN IV 05/25/25 00:00 Famotidine 20 mg Q12HR PO 05/25/25 10:00 05/26/25 09:53 20 MG Acetaminophen 650 mg Q6HP PRN PO 05/25/25 04:30 05/26/25 00:22 650 MG Lacosamide 200 mg QAM PO 05/26/25 07:00 05/26/25 06:19 200 MG Lacosamide 300 mg HS PO 05/26/25 22:00 Levofloxacin/ Dextrose 100 ml @ 100 mls/hr DAILY IV 05/26/25 10:00 05/26/25 12:34 100 MLS/HR Sodium Chloride 1,000 ml @ 125 mls/hr Q8H IV 05/26/25 10:00 05/26/25 12:35 125 MLS/HR laboratory and microbiology Laboratory Tests 05/26/25 06:27 Test 05/26/25 06:27 Range/Units Serum Glucose 95 74-106 mg/dL Microbiology Date/Time Source Procedure Growth Status 05/25/25 10:30 Stool Stool Culture - Preliminary Resulted 05/25/25 10:30 Stool Shiga Toxin I & II - Final Resulted Problem List/Assessment/Plan Problem List/Assessment/Plan # Breakthrough Tonic Clonic seizure with H/o epilepsy -Patient had couple of seizure episode at home since 4 days -Unable to take seizure medication due to Nausea and vomiting - patient is compliant with his seizure medications -Lacosamide 200 mg p.o. b.i.d. and Divalproex 500 mg ER p.o. b.i.d. given -Neurologic consult placed and recomended Follow up with [place] neurologist on discharge. # Intractable nausea and vomiting likely due to viral gastroenteritis - CT abdomen pelvis without contrast showed No acute intraabdominal abnormality. Normal appendix. 4 mm nonobstructive right kidney stone. No hydronephrosis. - IV fluids given - Ondansetron 4 mg q.6 H - stool culture pending - Stool occult blood, and WBC negative - blood culture ending # 4mm non obstuctive right kidney stone -Urology follow-up outpatient 4 weeks after discharge if calculus not passes spontaneously. - IV fluids # Transaminitis secondary to medication induced - AST 146, ALT 161, - Liver US is normal - Hepatitis panel negative - Valproic acid level- 76.6 # Thrombocytopenia possibly medication induced -Platelet count 83 -No active signs symptoms of bleeding -Monitor CBC -Valproic acid level- 76.6 # ROLLY due to VMN -NSS 125 cc/hour -Creatinine 1.28, unknown baseline, EGFR 77 -Avoid nephrotoxic drugs -UA- blood trace, WBC 13, nitrates and leukocyte esterase-negative. # Hyponatreima - resolved # Mild Hypertriglyceridemia - [facility] Specialist on diet and lifestyle changes DIET: Clear liquid diet GI prophylaxis: Famotidine 20 mg p.o. b.i.d. DVT prophylaxis: Ambulatory Goals of care discussed with the patient for 27 minutes: full code Case discussed with Dr. Briscoe Plan discussed with: Patient My Orders My Orders Orders - BETH FLORES Procedure Category Date Status Time Complete Blood Count LAB 05/27/25 Verified 04:00 Dietary Evaluation Review Comments: Monitor PO intake and follow up with GI consults, lab values and medication list Expected Outcomes/Goals: free from GI symptoms Date of Service: May 26, 2025 Billing Provider: MARILYN BRISCOE MD Common Visit Codes: [id number] INP/OBS CARE(HIGH) BETH FLORES May 26, 2025 16:46 MARILYN BRISCOE MD May 29, 2025 15:56
[2025-05-27 01:00] VITALS: BP 106/70; PULSE 67; RESP 17; TEMP 99.8; O2SAT 97
[2025-05-27 05:00] VITALS: BP 97/62; PULSE 63; RESP 18; TEMP 98.3; O2SAT 95
[2025-05-27 07:44] VITALS: PULSE 71; RESP 18; O2SAT 97
[2025-05-27 07:45] LABS: Hematocrit 44.7 % (41.0-53.0); Hemoglobin 15.3 g/dL (13.5-17.5); Mean Corpuscular Hemoglobin 31.9 pg (28.0-32.0); Mean Corpuscular Volume 92.9 fL (80.0-100.0)
[2025-05-27] MEDS ORDERED: FAMO20TA10 PO (08:25)
[2025-05-27] MEDS ORDERED: LEVO750T40 PO (08:25)
[2025-05-27 08:29] LABS: Total Cells Counted 100.0 (100)
[2025-05-27 08:45] VITALS: BP 105/71; PULSE 71; RESP 18; TEMP 98.8; O2SAT 97
[2025-05-27 09:00] VITALS: BP 105/71; PULSE 71; RESP 18; TEMP 98.8; O2SAT 97
--- NOTE | 2025-05-27 11:52 | DVHDSRES ---
Discharge Summary Date of Admission Resident Creating Document: BETH FLORES RESIDENT May 24, 2025 at 22:45 Date of Discharge: May 27, 2025 Admitting Diagnosis # Breakthrough Tonic Clonic seizure with H/o epilepsy Labs/Diagnostic Data: Laboratory Results Test 05/27/25 07:14 05/26/25 06:27 05/25/25 20:00 05/25/25 10:30 White Blood Count 7.9 10^3/uL (4.4-10.8) Red Blood Count 4.81 10^6/uL (4.5-5.90) Hemoglobin 15.3 g/dL (13.5-17.5) Hematocrit 44.7 % (41.0-53.0) Mean Corpuscular Volume 92.9 fL (80.0-100.0) Mean Corpuscular Hemoglobin 31.9 pg (28.0-32.0) Mean Corpuscular Hemoglobin Concent 34.3 g/dL (32.0-36.0) Red Cell Distribution Width 13.5 % (11.8-14.3) Platelet Count 93 10^3/uL (140-450) Mean Platelet Volume 11.2 fL (6.9-10.8) Neutrophils (%) (Auto) % (37.0-80.0) Lymphocytes (%) (Auto) % (10.0-50.0) Monocytes (%) (Auto) % (0.0-12.0) Basophils (%) (Auto) % (0.0-2.0) Neutrophils # (Auto) 10 ^3/uL (1.6-8.6) Lymphocytes # (Auto) 10 ^3/uL (0.4-5.4) Monocytes # (Auto) 10 ^3/uL (0-1.3) Differential Total Cells Counted 100.0 (100) Neutrophils % (Manual) 38 (37.0-80.0) Band Neutrophils % (Manual) 7 Lymphocytes % (Manual) 43 (10.0-50.0) Monocytes % (Manual) 12 (0-12) Eosinophils % (Manual) 0 (0-7) Basophils % (Manual) 0 (0.0-2.0) Metamyelocytes % (manual) 0 Myelocytes % (Manual) 0 Promyelocytes % (Manual) 0 Blast Cells % (Manual) 0 Reactive Lymphocytes 0 Platelet Estimate Decreased Smudge Cells 2 /100 WBC Large Platelets Few Sodium Level 141 mmol/L (136-145) Potassium Level 4.4 mmol/L (3.5-5.1) Chloride Level 107 mmol/L (98-107) Carbon Dioxide Level 29 mmol/L (20-31) Anion Gap 5 (5-15) Blood Urea Nitrogen < 5 mg/dL (9-23) Creatinine 0.99 mg/dL (0.700-1.30) Glomerular Filtration Rate Calc 105 mL/min (>90) BUN/Creatinine Ratio 5.1 (10.0-20.0) Serum Glucose 95 mg/dL (74-106) Calcium Level 9.1 mg/dL (8.7-10.4) Influenza Type A Antigen Negative (Negative) Influenza Type B Antigen Negative (Negative) SARS-CoV-2 Antigen (Rapid) Negative (NEGATIVE) Stool Occult Blood Negative (Negative) Stool Occult Blood Sample #3 (Negative) Stool for White Cells None seen Test 05/25/25 08:46 05/25/25 04:48 05/24/25 14:22 05/24/25 13:33 Lactic Acid Level 1.0 mmol/L (0.4-2.0) Creatine Kinase 94 U/L (46-171) Hemoglobin A1c 5.3 % A1C (<5.7) Triglycerides Level 181 mg/dL (< 150) Cholesterol Level 113 mg/dL (< 200) LDL Cholesterol 80 mg/dL (< 100) HDL Cholesterol 13 mg/dL (40-59) Vitamin B12 Level 863 pg/mL (211-911) Folic Acid 4.40 ng/mL (>5.38) Thyroid Stimulating Hormone (TSH) 3.95 uIU/mL (0.55-4.78) Hepatitis A IgM Antibody Negative Hepatitis B Surface Antigen Negative (Negative) Hepatitis B Core IgM Antibody Negative (Negative) Hepatitis C Antibody Negative (Negative) Eosinophils (%) (Auto) 0.0 % (0.0-7.0) Eosinophils # (Auto) 0 10 ^3/uL (0-0.8) Basophils # (Auto) 0 10 ^3/uL (0-0.2) Nucleated Red Blood Cells 0.0 % Total Bilirubin 0.6 mg/dL (0.2-1.0) Aspartate Amino Transferase (AST) 146 U/L (13-40) Alanine Aminotransferase (ALT) 161 U/L (7-40) Alkaline Phosphatase 77 U/L (46-116) Total Protein 6.9 g/dL (5.7-8.2) Albumin 4.4 g/dL (3.2-4.8) Valproic Acid Level 76.6 ug/mL (50-100) Urine Color Yellow (Yellow) Urine Clarity Clear (Clear) Urine pH 6.5 (5.0-9.0) Urine Specific [place] 1.035 (1.001-1.035) Urine Protein 2+ (Negative) Urine Ketones 2+ (Negative) Urine Blood Trace /uL (Negative) Urine Nitrite Negative (Negative) Urine Bilirubin Negative (Negative) Urine Urobilinogen 6 mg/dL (Negative) Urine Leukocyte Esterase Negative /uL (Negative) Urine RBC 3 /hpf (0 - 3) Urine Microscopic WBC 13 /HPF (0-3) Urine Squamous Epithelial Cells Few /hpf (<5) Urine Bacteria None seen /hpf (None Seen) Urine Mucus Few (None Seen) Urine Glucose Normal mg/dL (Normal) Other Laboratory Tests 05/27/25 07:14 05/26/25 06:27 Brief Hx & Hospital Course: Patient is a 30-year-old male with past medical history of asthma, and epilepsy which was diagnosed in 2019 who is taking divalproex, and locasamide who came to the ED with chief complaints of abdominal pain associated with fever, nausea, vomiting, and diarrhea, low back pain since 5 days. patient has been compliant with seizure medications but has been able to take them because of Nausea and Vomiting every time he eats anything, had couple of tonic clonic seizure episodes at home which lasted 1 minute each and was confused after the seizure stopped, with no trauma to the head. he denies any blood in the stool or vomit. Patient denies any recent sick contacts, travel, eating outside foods. He complained his fevers mostly at night. Patient denies any surgical history family history not contributory. patient denies any smoking alcohol use or drug use. He has elevated AST ALT, CT shows 4 mm nonobstructive right kidney stone. Liver ultrasound was normal. Brief hospital course: Patient came to the ED with abdominal pain associated with fever, nausea, vomiting, diarrhea, low-back pain. For his breakthrough tonic-clonic seizure which he had couple of episodes at home, because of the nausea and vomiting takes his seizure medications. He states that he is compliant with his seizure medications and a neurological consult was placed where he recommended to follow-up with his [place] neurologist on discharge. For his nausea and vomiting likely due to viral gastroenteritis IV fluids were given, ondansetron 4 mg Q 6 was given, stool culture showed no growth, stool occult blood and WBC were negative, CT abdomen pelvis without contrast showed No acute intraabdominal abnormality, Normal appendix. 4 mm nonobstructive right kidney stone. No hydronephrosis. For his right kidney stone patient was recommended to follow-up with urology outpatient 4 weeks after discharge if calculus has not passed his spontaneously. Patient had mild transaminitis likely medication induced AST 146, ALT 161, Liver US is normal, hepatitis panel negative, valproic acid level 76.6. Patient had thrombocytopenia possibly medication induced platelet count was 83 and now at discharge 93. Patient had ROLLY likely due to VMN IV fluids were given, urinalysis was normal, creatinine 1.28. Patient had hyponatremia and was resolved. Patient had mild hypertriglyceridemia and was counseled on diet and lifestyle changes. For GI prophylaxis famotidine 20 mg p.o. b.i.d. was given. Patient was on clear liquid diet and changed to regular diet and tolerated well without any diarrhea, nausea, vomiting. Patient was ambulatory. Patient is stable for discharge and he communicated understanding that she had to follow-up with his neurologist and PCP in 1-2 weeks. General: Patient alert and oriented in person, place and time. Patient following commands. HEENT: Normocephalic, atraumatic, moist mucous membranes Respiratory/pulmonary: Clear lungs bilaterally, vesicular murmurs present in almost all lung osullivan, no associated crackles or wheezes. Cardiovascular: Normal heart sounds S1 and S2 with no associated murmurs Abdomen: Abdomen nondistended, there is no pain to palpation in any of the abdominal quadrants, no palpable masses. Extremities: There is no peripheral edema present at the lower extremities. Peripheral Pulses: 3+ Radial (R). 3+ Radial (L). 3+ Dorsalis pedis (R). 3+ Dorsalis pedis(L) Skin: No rashes or pruritus, there is no sacral edema present at this time. Neurological: Intact cranial nerves with no focal neurologic deficits Operations or Procedures EXAM: XY CHEST XRAY 1 VIEW Indication: seizure Technique: Single frontal view of the chest was obtained Comparison: None FINDINGS: Lines and Tubes: None Lungs: No focal consolidation. Pleura: No effusion. No pneumothorax. Cardiomediastinal contours: Unremarkable Bones: No acute osseous abnormality. IMPRESSION: No acute cardiopulmonary disease. ORDERING PHYSICIAN: ABE GENAO PROCEDURE(s): LIVUS - LIVER REASON: Abnormal LFTs ORDER NUMBER(s): [id number], ACCESSION NUMBER(s): [id number] INDICATION: Abnormal LFTs TECHNIQUE: Multiple real-time sonographic images were obtained of the right upper quadrant. COMPARISON: None FINDINGS: The liver demonstrates normal homogeneous echotexture without focal mass lesions. The liver measures 17.0 cm. Normal hepatopetal portal flow identified. No evidence of pleural effusion or abdominal ascites. There is no intrahepatic or extrahepatic ductal dilatation. The common duct measures 0.3 cm. The gallbladder is without evidence of stone or sludge. The gallbladder wall measures 0.3 cm and is within normal limits. Negative sonographic linares's sign. The right kidney measures 10.4 cm. The right kidney is normal in contour, size, and shape. The echogenicity is normal. There is no hydronephrosis. The pancreas is normal. IMPRESSION: 1. Unremarkable right upper quadrant sonogram. - ------ CT CT AB PEL WO CON-NO ORAL OR IV INDICATION: R flank pain, n/v/d fever EXAM DATE: 05/24/2025 01:41 PM COMPARISON: None RADIATION DOSE: CTDIvol: 5 mGy, DLP: 290 mGy*cm PROCEDURE: Helical CT images were obtained of the abdomen and pelvis without IV contrast Sagittal and coronal reconstructions are provided. ORAL CONTRAST: None. ADDITIONAL IMAGES / REFORMATS: None All CT scans at this medical facility are performed using dose modulation techniques as appropriate to a performed exam including the following: Automated exposure control was utilized; adjustment of the MA and/or KV according to patient size; and use of iterative reconstruction technique. FINDINGS: LUNG BASE: Normal. LIVER: Normal. GALLBLADDER AND BILIARY TREE: No calcified gallstones. Normal caliber wall. No intra- or extrahepatic biliary ductal dilation. PANCREAS: Normal. SPLEEN: Normal. BOWEL: Normal. Normal appendix. ADRENALS: Normal. KIDNEYS AND URETER: 4 mm nonobstructive right kidney stone. No hydronephrosis. BLADDER: Normal. REPRODUCTIVE ORGANS: Normal. LYMPH NODES:No lymphadenopathy. PERITONEUM: No ascites or free air. No other fluid collection. VESSELS: Normal RETROPERITONEUM: Normal. ABDOMINAL WALL: Normal. BONES: Normal. IMPRESSION: No acute intraabdominal abnormality. Normal appendix. 4 mm nonobstructive right kidney stone. No hydronephrosis. Condition at Discharge: Stable Final Diagnosis/Problems List # Breakthrough Tonic Clonic seizure with H/o epilepsy # Intractable nausea and vomiting likely due to viral gastroenteritis # 4mm non obstuctive right kidney stone # Transaminitis secondary to medication induced # Thrombocytopenia possibly medication induced # ROLLY due to VMN # Hyponatreima # Mild Hypertriglyceridemia Discharge Disposition: Home Discharge Instruct/Medications Diet: Regular Activity: No Restrictions, As Tolerated Follow Up/Referral: Follow up with PCP and Neurologist in 1-2 weeks Medications: As per EMR Scheduled Famotidine (Pepcid Tablet), 1 TAB PO BID Levofloxacin Hemihydrate (Levofloxacin), 1 TAB PO DAILY Miscellaneous Medications Divalproex Sodium (Divalproex Sodium), TAB PO, (Reported) Lacosamide (Lacosamide), PO, (Reported) Discharge Statement: "Patient was advised to return to the ER or call 911 if any headaches, dizziness, shortness of breath, chest pain, abdominal pain, bleeding, fevers, or worsening of medical condition. Patient was counseled about treatment plan, medications, possible side effects, patientverbalized understanding. All questions were answered to the best of my ability. This discharge took greater then 30 minutes in planning, reviewing documentation, counseling the patient, and discussing with other team members." ASSESSMENT ASSESSMENT Assessment # Breakthrough Tonic Clonic seizure with H/o epilepsy Date of Service: May 27, 2025 Billing Provider: MARILYN BRISCOE MD Common Visit Codes: 69403-PQB/OBS DISCH DAY >30min BETH FLORES RESIDENT May 27, 2025 11:52 MARILYN BRISCOE MD May 29, 2025 16:04
== END 2025-05-27 09:30 | disposition home or self-care (01) | DRG 53 ==
LOC: ER 12:24 → EEVIPCON 12:24 → OVERFLOW 22:45 → CENTRAL 22:47
PROVIDERS: ADMIT Student in an Organized Health Care Education/Training Program; ATTEND Student in an Organized Health Care Education/Training Program
DX: G40.409 Other generalized epilepsy and epileptic syndromes, not intractable, without status epilepticus (principal); N17.0 Acute kidney failure with tubular necrosis; D69.6 Thrombocytopenia, unspecified; A08.4 Viral intestinal infection, unspecified; Z20.822 Contact with and (suspected) exposure to COVID-19; E87.1 Hypo-osmolality and hyponatremia; E78.1 Pure hyperglyceridemia; R74.01 Elevation of levels of liver transaminase levels; N20.0 Calculus of kidney; J45.909 Unspecified asthma, uncomplicated; F17.200 Nicotine dependence, unspecified, uncomplicated; N39.0 Urinary tract infection, site not specified; T42.6X5A Adverse effect of other antiepileptic and sedative-hypnotic drugs, initial encounter; Z87.442 Personal history of urinary calculi; Z83.3 Family history of diabetes mellitus; Z82.49 Family history of ischemic heart disease and other diseases of the circulatory system; Z79.899 Other long term (current) drug therapy; Y92.89 Other specified places as the place of occurrence of the external cause; Z91.148 Patient's other noncompliance with medication regimen for other reason
CPT/HCPCS: 36415; 71045; 74176; 76705; 80048; 80053; 80061; 80074; 80164; 81001; 82270; 82550; 82607; 82746; 83036; 83605; 84443; 85007; 85025; 85027; 85048; 87040; 87045; 87426; 87427; 87804; 96365; 96375; G0378; J1956; J2405; J3490